=== PATIENT | male | born 1950 | race American Indian/Alaskan Native ===

== ENCOUNTER 2017-11-17 07:04 | Day surgery (SDC) | payer MEDICARE ==
[2017-11-17 08:34] LABS: Basophils # (Auto) 0.1 K/mm3 (0.0-0.1); Basophils % (Auto) 1.1 % (0.0-1.8); Eosinophils # (Auto) 0.3 K/mm3 (0.0-0.4); Hematocrit 38.4 % (35.5-45.6); Hemoglobin 12.9 gm/dl (11.8-15.2); Lymphocytes # (Auto) 1.9 K/mm3 (1.2-5.4); Lymphocytes % (Auto) 39.6 % (13.4-35.0); Mean Corpuscular HGB Conc 34 % (32-34); Mean Corpuscular Hemoglobin 30 pg (28-32); Mean Corpuscular Volume 90 fl (84-94); Monocytes # (Auto) 0.4 K/mm3 (0.0-0.8); Monocytes % (Auto) 8.8 % (0.0-7.3); Platelet Count 182 K/mm3 (140-440); Red Blood Count 4.26 M/mm3 (3.65-5.03); Red Cell Distribution Width 14.2 % (13.2-15.2)
[2017-11-17 08:49] LABS: BUN/Creatinine Ratio 13; Blood Urea Nitrogen 13 mg/dL (9-20); Hemolysis Index 7; INR 1.16 (0.87-1.13)
[2017-11-17 08:50] LABS: Partial Thromboplastin Time 33.7 Sec. (24.2-36.6)
--- NOTE | 2017-11-17 09:04 | Anesthesia Consultation ---
Anesthesia Consult and Med Hx Date of service: 11/17/17 - Airway Anesthetic Teeth Evaluation: Good ROM Head & Neck: Adequate Mental/Hyoid Distance: Adequate Mallampati Class: Class II Intubation Access Assessment: Probably Good - Pre-Operative Health Status ASA Pre-Surgery Classification: ASA3 Proposed Anesthetic Plan: MAC - Pulmonary Hx Smoking: Yes Hx Respiratory Symptoms: Yes - Cardiovascular System Hx Hypertension: Yes Hx Cardia Arrhythmia: Yes (atrial fibrilation) - Other Systems Hx Obesity: Yes (BMI 32.6)
--- NOTE | 2017-11-17 09:06 | Anesthesia Day of Surgery ---
Anesthesia Day of Surgery - Day of Surgery Patient Examined: Yes Patient H&P Reviewed: Yes Patient is NPO: Yes Beta Blockers: Yes
[2017-11-17] MEDS ORDERED: NACL 0.9% 500 ML 500 ML ONE (09:13)
[2017-11-17] MEDS ORDERED: DIPRIVAN 10 MG/ML IV ONE ×2 (09:14)
[2017-11-17] MEDS ORDERED: HURRICAINE ONE 20% TOPICAL SPRAY MM (09:15)
[2017-11-17] MEDS ORDERED: XYLOCAINE MPF 2% ONE (10:00)
[2017-11-17] MEDS ORDERED: NACL 0.9% 500 ML 500 ML IV SCH (10:00)
[2017-11-17] MEDS ORDERED: HURRICAINE ONE 20% TOPICAL SPRAY MM NR (10:00)
--- NOTE | 2017-11-17 11:36 | Treadmill Report ---
TRANSESOPHAGEAL ECHOCARDIOGRAM REFERRING PHYSICIAN: Flor Dawson MD TIME: 10:28 a.m. The patient is a 67-year-old pleasant -[place] gentleman with a history of chronic persistent atrial fibrillation, status post placement of Watchman device, underwent a transesophageal echo evaluation to rule out intracardiac thrombus (the patient has been on Eliquis 5 mg p.o. b.i.d.). The patient's posterior pharynx was anesthetized with Hurricaine Jackson three times. With Anesthesia on standby, the patient received 150 mg of intravenous Diprivan as premedication (given by anesthesiologist). The procedure was done under continuous pulse oximetry monitoring and under continuous EKG monitoring. He tolerated the procedure well. The patient was placed in the left lateral position and the BILL probe was passed through the mouth and it was advanced up to 40 cm without difficulty. Initially, transgastric views were done. Subsequently, further views were done. FINDINGS: The study revealed moderate left atrial enlargement. There is no evidence of thrombus in the left atrium or in the left atrial appendage. Left atrial appendage occluder device (Wachman) was found to be in place. The mitral valve leaflets appear thickened, particularly the anterior leaflet, but the opening appears normal. The tricuspid valve leaflets appear normal. The aortic valve has 3 leaflets and the noncoronary cusp is thickened, but there is no evidence of aortic stenosis. Pulmonary valve leaflets appear normal. There is no evidence of intracardiac shunt (bubble contrast study was negative). The color flow and Doppler studies reveal evidence of a moderate central mitral regurgitation and mild tricuspid regurgitation. Mild pulmonary hypertension was seen with right ventricular systolic pressure of around 42 mmHg. The pulmonary artery is dilated and it measures around 3.4 cm. The descending thoracic aorta reveals grade 1 atheromatous changes. CONCLUSION: 1. Moderate left atrial enlargement. 2. Moderate central mitral regurgitation. 3. No evidence of thrombus in the left atrium or in the left atrial appendage. 4. Left atrial appendage occluder device (Watchman device) was found to be in place. 5. Mild tricuspid regurgitation. 6. The right ventricular systolic pressure is 42 mmHg indicating mild pulmonary hypertension. 7. Grade 1 mild atheromatous changes in the descending thoracic aorta. ADDENDUM: It was decided to proceed with DC cardioversion of atrial fibrillation. JOB# [id number] [facility]
--- NOTE | 2017-11-17 11:46 | Procedure Note ---
NAME OF PROCEDURE: DC cardioversion. REFERRING PHYSICIAN: Samir Ray MD TIME: 10:50 a.m. CLINICAL DATA: The patient is a 67-year-old, pleasant, -[place] gentleman with history of chronic persistent atrial fibrillation, status post placement of a Watchman device, underwent a transesophageal echocardiographic evaluation, which did not reveal any evidence of thrombus in the left atrium or in the left atrial appendage. It was decided to proceed with DC cardioversion. INDICATION: Permanent atrial fibrillation. The patient has received a total of 150 mg intravenous Diprivan as premedication with Anesthesia on standby (given by anesthesiologist). DESCRIPTION OF PROCEDURE: The procedure was done under continuous pulse oximetry monitoring and under continuous EKG monitoring. The rhythm of atrial fibrillation was converted to sinus rhythm with 200 joules of current. A 12-lead EKG was ordered, which revealed normal sinus rhythm with a rate of 64 per minute and diffuse nonspecific T-wave changes. The patient tolerated the procedure well. Discussed with the patient's in detail. JOB# [id number] [facility]
[2017-11-17 12:25] VITALS: BP 138/80
== END 2017-11-17 12:30 | disposition home or self-care (01) ==
LOC: CATHLABREC 07:04 → EDSTATUS 08:30 → CATHLABREC 12:30
PROVIDERS: ATTEND Internal Medicine Cardiovascular Disease
DX: I48.1 Persistent atrial fibrillation (principal); I27.20 Pulmonary hypertension, unspecified; I08.1 Rheumatic disorders of both mitral and tricuspid valves
CPT/HCPCS: 36415; 80048; 85025; 85610; 85730; 92960; 93005; 93010; 93312; 93320; 93325; J2704; J7040